=== PATIENT | female | born 1935 | race Caucasian/White ===

== ENCOUNTER → 2016-10-06 | Outpatient (CLI) | payer MEDICARE, OTHER ==
[~2016-10-06] MED LIST: Ambien PO; CIPROFLOXACIN500 M1 PO; CLINDAMYCIN HC300 MG PO; COLACE100 MG PO; CRANBERRY400 MG PO; DEXILANT60 MG PO; DOCUSATE SODIU100 MG PO; ENDOCET 5-3251 EACH PO; ESKALITH300 M1 PO; ESTRACE42.5 GM VG; FLONASE16 G1 BOTH NARES; GABAPENTIN300 MG PO; HYDROCODON-ACE1 EAC7 PO; KAPIDEX60 MG PO; LITHIUM CARBON300 MG PO; Levothroid,Synthroid PO; NEURONTIN300 MG PO; NORCO 5/3251 TABLET PO; PEPCID20 MG PO; PROCTOZONE-HC30 GM PR; SYNTHROID125 MCG PO; THERAGRAN1 TABLET PO; Tylenol Extra Streng PO; VITAMIN D250000 UNIT PO; Vitamin D, Drisdol PO; ZOFRAN ODT4 MG PO; ZOLPIDEM TARTRAT5 MG PO
== END | disposition home or self-care (01) ==
LOC: CDC 10:48
DX: Z01.810 Encounter for preprocedural cardiovascular examination (principal)
CPT/HCPCS: 93000

== ENCOUNTER 2018-03-02 13:03 | Emergency (ER) | payer OTHER ==
[~2018-03-02] VITALS: Ht 162.6 cm; Wt 72.3 kg
[2018-03-02 14:25] LABS: HEMATOCRIT 37.5 % (36.0-46.0); HEMOGLOBIN 12.4 G/DL (11.9-15.5); MCH 30.1 PG (29.0-34.0); MCHC 33.1 G/DL (30.0-36.0); PLATELET COUNT 272 K/uL (156-360); RBC DIS.WIDTH-CV 13.3 % (11.8-14.6); RBC DIS.WIDTH-SD 44.7 % (39-53); RED BLOOD COUNT 4.12 M/uL (3.80-5.20); WHITE BLOOD COUNT 8.7 K/uL (4.1-10.2)
[2018-03-02 14:35] LABS: CHLORIDE 104 mEq/L (99-109); SODIUM 139 mEq/L (136-147)
[2018-03-02 14:37] LABS: GLUCOSE 101 mg/dL (70-99)
[2018-03-02 14:41] LABS: CREATININE 0.9 mg/dL (0.6-1.3); GFR ESTIMATE (CALCULATED) > 59 mL/min/
[2018-03-02 14:42] LABS: UREA NITROGEN (BUN) 14 mg/dL (9-23)
[2018-03-02 14:47] LABS: TROP-I INTERPRETATION NEGATIVE; TROPONIN-I < 0.01 ng/mL (0.0-0.30)
[2018-03-02] MEDS ORDERED: BACTRIM,SEPT1 TABLET PO (15:02)
[2018-03-02 15:08] VITALS: BP 135/68
== END 2018-03-02 15:09 | disposition home or self-care (01) ==
LOC: EME 13:03
PROVIDERS: Emergency Medicine
DX: S02.2XXA Fracture of nasal bones, initial encounter for closed fracture (principal); S09.8XXA Other specified injuries of head, initial encounter; M54.2 Cervicalgia; W01.0XXA Fall on same level from slipping, tripping and stumbling without subsequent striking against object, initial encounter
CPT/HCPCS: 70450; 70486; 71046; 72125; 80048; 84484; 85027; 93005; 99281; 99284